=== PATIENT | female | born 1945 | race Caucasian/White ===

== ENCOUNTER 2021-04-14 03:36 | Emergency (ER) | payer MEDICARE ==
[~2021-04-14] VITALS: Ht 165.1 cm; Wt 80.0 kg
[2021-04-14] MEDS ORDERED: HYDROcodone/APAP 5/325MG 1 TAB TABLET PO ONE (04:15)
--- NOTE | 2021-04-14 04:38 | ED.ADGEN ---
Past Medical History Past Surgical History: Other Additional Past Surgical Histo: hip General Adult EDM: Chief Complaint: SHOUDLER HPI: HPI: Patient is a 75 year old female coming in for right shoulder and arm pain after a fall. Patient was getting up to take her dog out when she tripped trying to go outside. Patient states she fell onto a carpeted floor and denies any head injury loss of consciousness. Says she did not fall onto outstretched hand but fell onto her shoulder. Complaining of pain in her shoulder and humerus. Denies any bleeding. Denies any paresthesias or tingling. Is right-handed. Does not take blood thinner Review of Systems: Review of Systems: All other systems within normal limits except for as noted in the HPI Current Medications: Current Medications Medications (Trade) Dose Ordered Sig/Rita Start Time Stop Time Status Last Admin Dose Admin Acetaminophen/ Hydrocodone Bitart (Lortab 5/325) 1 tab 1X ONCE 04/14/21 04:15 04/14/21 04:42 DC 04/14/21 04:59 1 TAB Allergies: Allergies: Allergies Coded Allergies Type Severity Reaction Last Updated Verified No Known Drug Allergies 04/14/21 No Physical Exam: PE: Constitutional: Well developed, well nourished, no acute distress, non-toxic appearance. [] HENT: Normocephalic, atraumatic, bilateral external ears normal, nose normal. [] Eyes: PERRLA, conjunctiva normal, no discharge. [] Neck: No rigidity, supple, no stridor. [] Cardiovascular: Regular rate and rhythm, brisk cap refill [] Lungs & Thorax: Non labored symmetric respirations, no tachypnea or respiratory distress [] Abdomen: Soft, nondistended. Skin: Warm, dry, no erythema, no rash. [] Back: Unremarkable Extremities: No deformities, range of motion grossly intact, no lower extremity edema. Swelling and tenderness of right mid humerus, no deformity of the elbow or wrist. Neurovascular intact distal to injury. [] Neurologic: Alert and oriented X 3, no focal deficits noted. [] Psychologic: Affect normal, judgement normal, mood normal. [] Current Patient Data: Vital Signs: Vital Signs Date Time Temp Pulse Resp B/P (MAP) Pulse Ox O2 Delivery O2 Flow Rate FiO2 04/14/21 05:00 79 164/68 (100) 97 04/14/21 04:59 19 04/14/21 04:03 97.9 97.9 EKG: EKG: [] Heart Score: C/O Chest Pain: No Risk Factors: Risk Factors: DM, Current or recent (<one month) smoker, HTN, HLP, family history of CAD, obesity. Risk Scores: Score 0 - 3: 2.5% MACE over next 6 weeks - Discharge Home Score 4 - 6: 20.3% MACE over next 6 weeks - Admit for Clinical Observation Score 7 - 10: 72.7% MACE over next 6 weeks - Early Invasive Strategies Radiology/Procedures: Radiology/Procedures: Right shoulder and humerus x-rays EP interpretation: [Mildly impacted fracture of proximal humerus on right. Joint space maintained, clavicle and scapula unremarkable without fracture] Course & Med Decision Making: Course & Med Decision Making Reviewed images with darrick Rene to put in sling and follow-up in Dragon Disclaimer: Dragon Disclaimer: This electronic medical record was generated, in whole or in part, using a voice recognition dictation system. Departure Departure Impression: Primary Impression: Fracture of humerus, proximal, right, closed Disposition: HOME / SELF CARE / HOMELESS Condition: STABLE Referrals: RIKA OGLESBY MD (PCP) Patient Instructions: Humerus Fracture, Treated with Immobilization Additional Instructions: For follow-up call Samuel Franco DO schedule appointment in 1 week [facility] [address] [address] Scripts Hydrocodone Bit/Acetaminophen (HYDROCODONE-APAP 5-325 ) 1 Tab Tablet 1 TAB PO PRN Q6HRS PRN for PAIN for 5 Days, #15 TAB 0 Refills Prov: ARI FORRESTER MD 04/14/21 ARI FORRESTER MD Apr 14, 2021 04:38
[2021-04-14 05:00] VITALS: BP 164/68
--- NOTE | 2021-04-14 05:43 | RAD ---
EXAM: 1. RIGHT SHOULDER 3 VIEWS. 2. RIGHT HUMERUS 2 VIEWS. HISTORY: Fall, right shoulder and humeral pain. COMPARISON: None. FINDINGS: A comminuted fracture of the right proximal humerus involves the surgical neck, greater tub erosity and lesser tuberosity. There is mild impaction and medial displacement of the distal fracture fragment. No fractures are appreciated more distally in the humerus. Glenohumeral osteoarthritis is mild. Alignment is maintained. Acromioclavicular osteoarthritis is mod erate to severe. IMPRESSION: 1. Comminuted fracture of the proximal humerus as above. 2. 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 Electronically signed by: Octavio Scott MD (04/14/2021 5:41 AM) [facility]
[2021-04-14] MEDS ORDERED: HYDR-2761 PO (06:01)
== END 2021-04-14 06:50 | disposition home or self-care (01) ==
LOC: ER 03:36
DX: S42.301A Unspecified fracture of shaft of humerus, right arm, initial encounter for closed fracture (principal); W01.0XXA Fall on same level from slipping, tripping and stumbling without subsequent striking against object, initial encounter; Y93.89 Activity, other specified; Y92.89 Other specified places as the place of occurrence of the external cause; Y99.8 Other external cause status
CPT/HCPCS: 73030; 73060; 99283; A4565